=== PATIENT | female | born 1995 ===

== ENCOUNTER 2018-05-18 10:23 | Inpatient (IN) | payer MEDICAID ==
[2018-05-18 10:26] VITALS: BMI 39.5
[2018-05-18 13:19] LABS: BASO # 0.1 K/uL (0.0-0.2); BASO % 0.6 % (0.0-2.0); EOS # 0.3 K/uL (0.0-0.7); EOS % 2.5 % (0.0-4.0); HEMOGLOBIN 12.1 g/dL (12.0-16.0); LYMPH # 1.4 K/uL (1.0-4.3); LYMPH % 13.8 % (20.0-40.0); MEAN CELL VOLUME 89.4 fl (81.0-99.0); MEAN CORPUSCULAR HEMOGLOBIN 29.9 pg (27.0-31.0); MEAN CORPUSCULAR HGB CONC 33.4 g/dL (33.0-37.0); MEAN PLATELET VOLUME 9.8 fl (7.2-11.7); MONO # 0.7 K/uL (0.0-0.8); MONO % 6.9 % (0.0-10.0); NEUT # 7.7 K/uL (1.8-7.0); NEUT % 76.2 % (50.0-75.0); RBC 4.06 Mil/uL (3.80-5.20); RED CELL DISTRIBUTION WIDTH 15.4 % (11.5-14.5); WHITE BLOOD COUNT 10.2 K/uL (4.8-10.8)
[2018-05-18 15:03] VITALS: O2SAT 100
[2018-05-18] MEDS ORDERED: Oxytocin 30 UNIT 30 UNITS/500 ML BAG IV ONE ×2 (17:06→17:07)
[2018-05-18] MEDS ORDERED: OXYTOCIN/0.9 % NS 20 UNIT/1,000 ML BAG IV SCH (17:15)
[2018-05-18] MEDS ORDERED: Lactated Ringer's 1,000 ML IV SCH (17:30)
[2018-05-18] MEDS ORDERED: Fentanyl/Bupivacaine HCl 250 ML EPI ONE (21:28)
--- NOTE | 2018-05-18 22:13 | OBADHP ---
Datetime: 05/18/2018 17:08 FHR - Baseline A Provider: 130 Contraction Comments Provider: Q3-5 minutes NICHD Variability Prov Fetus A: Moderate 6-25bpm NICHD Accel Fetus A IP Provider: 15X15 FHR Category Provider Fetus A: Category I NICHD Decel Fetus A IP Provider: None Dilatation, Provider: 3 Effacement, Provider: 90 Station, Provider: -2 Datetime: 05/18/2018 10:57 Admit Comment, IP Provider: C.C: Loss of fluid per vagina. 22 yo at 38.6 wks GA based on GUILHERME by us (01/25/18) presents because of loss of fluid via vagin a. She reports she was sleeping and woke up to a pool of fluid under her around 8:30 am. She reports contractions every 15-20 min. She denies vaginal bleeding. She reports good movement. She follo ws at [facility] [address] and her last appointment was . Ros: Negative except for stated above. ObHx: Denies. Denies STI history. Denies herpes history. Family history: Denies Social: Denies smoking history, drinking and illicit drug use. Surgical history: Denies Mediations: vitamins Allergies: Food: apples, pears and peaches- hives. Labs: HIV: negative HbsAg: Negative Rubella: Immune Gc/Cl: Negative RPR: negative ABO: O+ Antibody: negative. Physical:No acute distress. Heart: S1 and S2 appreciated. No murmurs, gallops or rubs. Lungs: Clear air entry bilaterally. Abdomen: Gravid, soft, non-tender to palpation. Negative CVA tenderness. Pelvic exam: No lesions noted on inspection. Speculum exam yielded pooling, nitrazine positive. Ce rvix is posterior at this time. FHT: 150 baseline; moderate variability; Accelerations present. No decelerations. Category 1 ashlyn ng. Assessment: 22 yo at 38.6 wks GA based on GUILHERME by us (01/25/18) presents because of loss of flu id via vagina- found to have positive nitrazine test and pooling on exam. Plan: - Admit for labor - Cytotec 50mg PO Q4h - continous monitoring - CBC and Type and screen. Case discussed with Dr. Guillen ----Sydnee Finnegan, PGY-1 Equities Trader. Attending Note: Patient was seen and examined with the resident and I agree with the above. Pelvic Type - PN: Adequate Extremities - PN: Normal Abdomen - PN: Normal Back - PN: Normal Breast - PN: Not Done Lungs - PN: Normal Heart - PN: Normal Thyroid - PN: Not Done Neurologic - PN: Not Done HEENT - PN: Not Done General - PN: Normal Pool Provider: Positive Nitrazine Provider: Positive Vital Signs Provider: Reviewed; Within Normal Limits IP Chief Complaint: Uterine contractions; Suspected ruptured membranes; Maternal discomfort Genitourinary Exam: Normal DTRs - PN: Not Done EGA AdmitDate IP: 38.6 IP Adm Impression: Term, intrauterine ; No Active Labor IP Admit Plan: Admit to unit; Initiate labor protocol; Initiate labor augmentation protocol Datetime: 04/25/2018 15:30 Comments, ACOG Physical Exam: General: Patient not in acute distress, but anxious and uncomfortable Head: atraumatic Heart: Normal RRR, S1S2 Lungs: Clear bilaterally Abdomen: soft, nontender, normal bowel sounds Back: No tenderness upon palpation, atraumatic, no bruises, lesions, no spinal deviation or protru sions Neuro: Alert, orientedx3, CNII-XIII intact, normal gait Gestation - Est Wks by US: 35.4 IP Hx Assessment: The History has been Reviewed and is Current
--- NOTE | 2018-05-18 22:16 | OBPN ---
Datetime: 05/18/2018 17:08 IP Progress Impression: Normal progression of labor; Reassuring heart rate IP Procedures: Sterile Vag Exam IP Progress Plan: Continue present management; Augmentation Contraction Comments Provider: Q3-5 minutes FHR - Baseline A Provider: 130 IP Progress Note Comment: Subjective: Patient lying in bed with mild discomfort. She reports having contractions every 5-6 minutes. Objective: BP: 126 / 87 HR: 91, RR 16, T 98.3 FHT: 130 Baseline; moderate variability; Accelerations present 15x15; No decelerations. CTX: Q3-5 minutes SVE: 3 cm Dilation / 90% effacement/ -2station Bedside ultrasound- cephalic FHT reassuring, Category : 1 Assessment: 22 yo with IUP @ 38.6 weeks in early labor . Plan: - continous heart monitoring. - Augment labor with Pitocin @ 2mU/ 20 min - per protocol Discussed with Dr. Guillen ---Sydnee Finnegan, PGY1 Dye Colorist Dyer. NICHD Accel Fetus A IP Provider: 15X15 FHR Category Provider Fetus A: Category I NICHD Variability Prov Fetus A: Moderate 6-25bpm Dilatation, Provider: 3 Effacement, Provider: 90 Station, Provider: -2 NICHD Decel Fetus A IP Provider: None Datetime: 05/18/2018 10:57 Pool Provider: Positive Nitrazine Provider: Positive Vital Signs Provider: Reviewed; Within Normal Limits Datetime: 04/25/2018 15:30 Gestation - Est Wks by US: 35.4
[2018-05-19] MEDS ORDERED: Lidocaine 2% MPF (5 ml) Inj ONE (01:12)
--- NOTE | 2018-05-19 01:15 | OBPN ---
Datetime: 05/19/2018 01:10 IP Progress Impression: Normal progression of labor; Reactive non-stress test IP Procedures: Sterile Vag Exam IP Progress Plan: Continue present management; Anticipate Vaginal Delivery Membranes, Provider: Ruptured Contraction Comments Provider: Q 3-5 FHR - Baseline A Provider: 150s Gestation - Est Wks by US: 39.0 Presentation-Admit: Vertex IP Progress Note Comment: IUP at 39wks Active labor Maternal and status reassuring Plan Prepare for delivery. NICHD Accel Fetus A IP Provider: 15X15 FHR Category Provider Fetus A: Category I NICHD Variability Prov Fetus A: Moderate 6-25bpm Dilatation, Provider: 10 Effacement, Provider: 100 Station, Provider: -2 NICHD Decel Fetus A IP Provider: None
[2018-05-19] MEDS ORDERED: Benzocaine/Menthol SPRAY TOP PRN ×2 (05:14→14:10)
[2018-05-19] MEDS ORDERED: Oxycodone/Acetaminophen 5/325 mg Tab PO PRN ×2 (05:14→14:10)
--- NOTE | 2018-05-19 05:21 | OBDS ---
DELIVERY PERSONNEL Delivery Doctor: Soraya Guillen MD Charity Fundraiser: Mariah Marquez RN/Sandra Godfrey RN Anesthesiologist: Mahesh Morrison MD MATERNAL INFORMATION Delivery Anesthesia: Epidural Medications in Delivery: Pitocin Placenta Cultured: No Maternal Complications: None Provider Comments: Uncomplicated spontaneous vaginal delivery of a viable female infant with BW of 3 380g and scores of 9 and 9. Second degree perineal and right first degree paraurethral lacerations were repaied with 3-0 vicry l under local anesthesia with 1% lidocaine. Patient tolerated the p[rocedure well. EBL- 300mls. LABOR SUMMARY EDC: 05/26/2018 00:00 No. Babies in Womb: 1 Attempted: No Labor Anesthesia: Epidural LABOR INFORMATION Reason for Induction: Not Applicable Complete Dilatation: 05/19/2018 00:50 Cervical Ripening Agents: Cytotec @ (Annotations: 50 mcg) Oxytocin: Augmentation Group B Beta Strep: Negative (Annotations: 04/23/18) Antibiotics # of Doses: N/A Antibiotics Time of Last Dose: N/A Steroids Given: None Reason Steroids Not Administered: Not Applicable MEMBRANES Membranes Rupture Method: Spontaneous Rupture of Membranes: 05/18/2018 08:00 Length of Rupture (hrs): 20.77 Amniotic Fluid Color: Light Meconium Amniotic Fluid Amount: Scant Amniotic Fluid Odor: Normal STAGES OF LABOR Stage 2 hrs: 3 Stage 2 min: 56 Stage 3 hrs: 0 Stage 3 min: 8 VAGINAL DELIVERY Episiotomy: None Laceration Extension: Second Degree Laceration Type: Perineal; Periurethral Laceration Repair: Yes Laceration Repair Note: Repair accomplished with 3-0 vicryl rapide and with good cosmesia BABY A INFORMATION Infant Delivery Date/Time: 05/19/2018 04:46 Method of Delivery: Vaginal Born in Route : No : N/A Forceps: N/A Vacuum Extraction: N/A Shoulder Dystocia : No SHOULDER DYSTOCIA BABY A Infant Delivery Date/Time: 05/19/2018 04:46 PRESENTATION/POSITION BABY A Presentation: Cephalic Cephalic Presentation: Vertex Breech Presentation: N/A PLACENTA INFORMATION BABY A Placenta Delivery Time : 05/19/2018 04:54 Placenta Method of Delivery: Spontaneous Placenta Status: Delivered SCORES BABY A Heart Rate 1 min: >100 bpm Resp Effort 1 min: Good Cry Reflex Irritability 1 min: Cough or Sneeze or Pulls Away Muscle Tone 1 min: Active Motion Color 1 min: Body Bono, Extremities Blue Resuscitation Effort 1 min: Tactile Stimulation SCORE 1 MIN: 9 Heart Rate 5 min: >100 bpm Resp Effort 5 min: Good Cry Reflex Irritability 5 min: Cough or Sneeze or Pulls Away Muscle Tone 5 min: Active Motion Color 5 min: Body Bono, Extremities Blue Resuscitation Effort 5 min: N/A SCORE 5 MIN: 9 INFANT INFORMATION BABY A Gestational Age at Delivery: 38.7 Gestational Status: Term Outcome : Liveborn Infant Condition : Stable Sex: Female IDENTIFICATION/MEDS BABY A ID Band Number: [id number] ID Band Location: Left Leg; Left Arm CORD INFORMATION BABY A No. Cord Vessels: 3 Nuchal Cord : N/A Nuchal Cord Other: N/A True Knot: 0 Cord pH Baby Arterial: N/A Cord pH Baby Venous: N/A Cord Blood Taken: Yes Banking/Donate Info: N/A Infant Suction: Mouth; Nose ASSESSMENT BABY A Infant Complications: Meconium Infant Complications Other: Light meconium Physical Findings at Delivery: Within Normal Limits Infant Respirations: Appears Normal Fruit Thinner/ALS Called : No Transferred To: Remains with Mother
[2018-05-19] MEDS ORDERED: OXYTOCIN/0.9 % NS 20 UNIT/1,000 ML BAG IV SCH (14:10)
[2018-05-20 05:49] LABS: BASO # 0.1 K/uL (0.0-0.2); BASO % 0.6 % (0.0-2.0); EOS # 0.4 K/uL (0.0-0.7); EOS % 3.4 % (0.0-4.0); HEMOGLOBIN 10.2 g/dL (12.0-16.0); LYMPH # 2.5 K/uL (1.0-4.3); LYMPH % 21.5 % (20.0-40.0); MEAN CELL VOLUME 89.6 fl (81.0-99.0); MEAN CORPUSCULAR HEMOGLOBIN 29.7 pg (27.0-31.0); MEAN CORPUSCULAR HGB CONC 33.1 g/dL (33.0-37.0); MEAN PLATELET VOLUME 8.7 fl (7.2-11.7); MONO # 0.7 K/uL (0.0-0.8); NEUT % 68.5 % (50.0-75.0); RBC 3.44 Mil/uL (3.80-5.20); RED CELL DISTRIBUTION WIDTH 16.1 % (11.5-14.5); WHITE BLOOD COUNT 11.6 K/uL (4.8-10.8)
--- NOTE | 2018-05-20 07:44 | OBPPN ---
Datetime: 05/20/2018 07:00 PP Pain Prov: Within normal limits PP Nausea Prov: Denies PP Flatus Prov: Yes PP BM Prov: No PP Breasts Prov: Not Done PP Heart Prov: Normal PP Lungs Prov: Normal PP Abdomen/Uterus Prov: Normal PP Lochia Prov: Normal PP Vulva/Perineum Prov: Not Done PP CVA Tenderness Prov: Not Done PP Extremities Prov: Normal PP C/S Incision Prov: Not Applicable PP Progress Prov: Normal PP Impression Prov: Normal progression PP Plan Prov: Continue present management PP Progress Note Prov: S: 22 yo s/p NVD on 05/19/2018 at 4:54 am. [facility] No significant overnight events. Pt reports occasional abdominal pain, but well contr olled with pain meds. Pt sitting up comfortably without any difficulty. Breast feeding baby. Tolerati ng diet. Lochia is similar to light menses in volume. Patient voiding without difficulties and report s passing gas but no bowel movement. Denies fever, chills, diarrhea, nausea, vomiting, chest pain, dy spnea, and dizziness. O: VS: stable GEN: NAD Cardio: S1S2, no M/G/R Resp: clear breath sounds b/l Abdomen: BS+, NT, Uterus is firm and at the level of the umbilicus. EXT: No edema, calves non-tender NEURO/PSYCHI: normal affect and mood Assessment/Plan: 22 yo s/p NVD on 05/19/2018 at 4:54 am. Pt remains afebrile, tolerating pain with medication, tolerating PO, doing well on PPD 1. OOB with caution -Patient sitting up without difficulty -Ibuprofen 600mg for pain. -Colace 100mg PO BID/Senokot 17.2 mg qHS for constipation -Encourage -F/u CBC post-delivery: pending -Anticipated d/c to home, 05/21/2018. Case discussed with Dr. Bautista --- Shawanda Romano, PGY1 OB Hospitalist Addendum: Pt seen and examined by me. Agree w/ above. PPD 1 s/p VD, doing well, b reast feeding. Continue current care. (ES) IP PP Procedures: None Vital Signs Provider PP: Reviewed; Within Normal Limits
--- NOTE | 2018-05-21 08:43 | OBPPN ---
Datetime: 05/21/2018 05:55 PP Pain Prov: Within normal limits PP Nausea Prov: Denies PP Flatus Prov: Yes PP BM Prov: No PP Breasts Prov: Not Done PP Heart Prov: Normal PP Lungs Prov: Normal PP Abdomen/Uterus Prov: Normal PP Lochia Prov: Normal PP Vulva/Perineum Prov: Normal PP CVA Tenderness Prov: Normal PP Extremities Prov: Normal PP C/S Incision Prov: Not Applicable PP Progress Prov: Normal PP Impression Prov: Normal progression PP Plan Prov: Discharge PP Progress Note Prov: S: Patient seen this morning at bedside, she is now s/p on 05/19/18 , on her PPD 2. Pt has no complaints today. Reports minimal abdominal pain and did not ask for pain m edication last night, she is tolerating liquid diet w/o N/V, ambulating to bathroom without any diffi culties, lochia is less than menses in volume, Breast feeding w/o difficulty and using formula as com plementary. Patient reports flatus but no BM as of yet. O: VS WNL PE: GEN: NAD HEENT: EOMI, Mucous membrane moist. RESP: CTA b/l CV: RRR, no murmurs heard ABD: soft, non-tender, uterus firm below umbilicus LE: No edema, Stas's negative. A/P 22 y/o now s/p on 05/19/18, going into her PPD2 today with normal post- progressio n. Patient is stable to be D/C home. -Encourage ambulation -Encourage -PNV 1 tab PO daily -Ibuprofen 600mg 1 tab Q6h prn for mild-mod pain -D/C home today Sydnee Finnegan MD PGY1 OB Hospitalist on-call. On uds, I saw this patient...agree with PGY1 note MAHNDO IP PP Procedures: None Vital Signs Provider PP: Reviewed; Within Normal Limits
--- NOTE | 2018-05-21 08:46 | OBDCSUM ---
Datetime: 05/21/2018 05:56 Discharged to, Provider: Home Follow up at, Provider: [facility] Disch Instr Activity: Normal activity; May Shower Disch Instr Diet: Regular Discharge Instructions, Provider: Routine instructions given Discharge Diagnosis, Provider: Term Delivered Discharge Time: 05/21/2018 10:00 Follow up in weeks, Provider: 4-6 weeks Disch Activity Restrictions: No exercising; No lifting; No sexual activity; Nothing in vagina - Inte rcourse, tampons, douche Discharge Comment, Provider: EGA: 38.4 wk Diagnosis: 22 y/o , s/p on 05/19/18 @ 04:54 am. She delivered a baby girl, Wt 3380g, APGA R 9/9 Summary: Patient is PPD2 with normal progression. No complications during post- period. Loch ia less than menses. Pt was able to pass gas and had BM, She is tolerating regular diet, Fundus firm below umbilicus, able to ambulate w/o any difficulties, voiding well, denies fever, chills, ARGUELLES, SOB, N/V, calf pain. CBC post-: 10.2/30.9 Discharge Instructions: Continue and increase PNV 1 tab PO daily Ibuprofen 600mg 1 tab PO Q6h prn for mild-mod pain Pt is planning to get the Depo shot Instructions given to patient: If excessive bleeding, return of pain or increasing pain and/or fev er without relief from medication, go to ED PT was urged if feeling sad, mood swing, depression, neglect of baby, suicidal thoughts, homicidal thought should go to ED or call 911 for help Pt should go to her Primary care doctor if she has difficulty with F/U post- visit with [facility] in 4 to 6 weeks Sydnee Finnegan MD PGY1 OB Hospitalist on-call. On ronuds, I saw this patient...agree with PGY1 note MAHNDO Contraception after Delivery: Depo-Provera
[2018-05-22 03:06] VITALS: BP 135/72; PULSE 70; RESP 20; TEMP 98.6
== END 2018-05-21 15:10 | disposition home or self-care (01) | DRG 373 ==
LOC: H.EROB2 10:23 → H.EROB 10:24 → H.EROB2 10:50 → H.EROB 10:51 → H.L&D 19:00 → H.OB/GYN 05-19 08:15
PROVIDERS: ADMIT Obstetrics & Gynecology; ATTEND Obstetrics & Gynecology
PROC: 4A1HXCZ Monitoring of Products of Conception, Cardiac Rate, External Approach (ICD-10-PCS; 2018-05-18)
PROC: 10E0XZZ Delivery of Products of Conception, External Approach (ICD-10-PCS; principal; 2018-05-19)
PROC: 0HQ9XZZ Repair Perineum Skin, External Approach (ICD-10-PCS; 2018-05-19)
DX: O77.0 Labor and delivery complicated by meconium in amniotic fluid (principal); O71.82 Other specified trauma to perineum and vulva; Z3A.38 38 weeks gestation of pregnancy; Z37.0 Single live birth